=== PATIENT | male | born 1950 | race Caucasian/White ===

== ENCOUNTER → 2017-07-17 | Outpatient (CLI) | payer MEDICARE, OTHER ==
[~2017-07-17] MED LIST: ASPI325T17 PO; DIAZ5TAB PO; HYDR-3307 PO; ROSU40TA PO
== END | disposition home or self-care (01) ==
LOC: CFH 08:29
PROVIDERS: ATTEND Neurological Surgery
DX: M48.061 Spinal stenosis, lumbar region without neurogenic claudication (principal); M71.38 Other bursal cyst, other site
CPT/HCPCS: 72148

== ENCOUNTER → 2017-07-22 | Outpatient (CLI) | payer MEDICARE, OTHER ==
[2017-07-22 14:48] LABS: MICROSCOPIC NOT IND
[2017-07-22 14:50] LABS: CULTURE INDICATED? NO
[2017-07-22 14:53] LABS: BASOPHILS # (AUTO) 0.03 x10^3/uL (0-0.1); BASOPHILS % (AUTO) 1 % (0-1); EOSINOPHILS # (AUTO) 0.07 x10^3/uL (0-0.4); EOSINOPHILS % (AUTO) 1 % (1-7); LYMPHOCYTES % (AUTO) 35 % (22-44); MD NO; MEAN CORPUSCULAR HEMOGLOBIN 36.1 pg (27.5-34.5); MEAN CORPUSCULAR HGB CONC 34.7 g/dL (33.2-36.2); MEAN CORPUSCULAR VOLUME 104.1 fL (81-97); MONOCYTES # (AUTO) 0.64 x10^3/uL (0.2-0.8); MONOCYTES % (AUTO) 12 % (2-9); NEUTROPHILS # (AUTO) 2.74 x10^3/uL (1.8-6.8); NEUTROPHILS % (AUTO) 51 % (42-75); PLATELET COUNT 225 x10^3/uL (130-400); RED CELL DISTRIBUTION WIDTH 12.4 % (9.4-14.8)
[2017-07-22 14:58] LABS: ANION GAP 8 mmol/L (5-15); CALCIUM 9.8 mg/dL (8.5-10.1); CHLORIDE 104 mmol/L (98-107); CREATININE 0.66 mg/dL (0.7-1.3)
[2017-07-22 15:09] LABS: INTERNATIONAL NORMALIZED RATIO 0.96 (0.93-1.1)
== END | disposition home or self-care (01) ==
LOC: STAR 13:40
PROVIDERS: ATTEND Neurological Surgery
DX: Z01.818 Encounter for other preprocedural examination (principal); M47.897 Other spondylosis, lumbosacral region; M48.061 Spinal stenosis, lumbar region without neurogenic claudication
CPT/HCPCS: 36415; 71046; 72110; 80048; 81003; 85025; 85610; 85730; 93005

== ENCOUNTER 2017-08-05 05:58 | Day surgery (SDC) | payer MEDICARE, OTHER ==
[~2017-08-05] VITALS: Ht 180.3 cm; Wt 76.7 kg
[2017-08-05] MEDS ORDERED: CETI10TA24 PO (06:23)
[2017-08-05] MEDS ORDERED: LACTATED RINGERS 1,000 ML IV SCH (06:24)
[2017-08-05 06:25] VITALS: BP 124/80
[2017-08-05] MEDS ORDERED: BUPIVACAINE/PF 0.25% ONE (06:47)
[2017-08-05] MEDS ORDERED: VANCOMYCIN 1,000 MG ONE (06:48)
[2017-08-05] MEDS ORDERED: BACITRACIN 50,000 UNIT ONE (06:48)
[2017-08-05] MEDS ORDERED: EPINEPHRINE 1 MG/ML, 1ML ONE (06:48)
[2017-08-05] MEDS ORDERED: THROMBIN 5,000 UNIT VIAL TP ONE (06:48)
[2017-08-05] MEDS ORDERED: ONDANSETRON ODT 8 MG PO ONE (08:00)
[2017-08-05] MEDS ORDERED: OXYcodone IR 5MG TABLET PO ONE (08:00)
[2017-08-05] MEDS ORDERED: GABAPENTIN 300 MG CAPSULE PO ONE (08:00)
[2017-08-05] MEDS ORDERED: ACETAMINOPHEN 500 MG TABLET PO ONE (08:00)
[2017-08-05] MEDS ORDERED: FENTANYL PF 250 MCG/5ML ONE (08:33)
[2017-08-05] MEDS ORDERED: GLYCOPYRROLATE 0.2MG/1ML, 5ML ONE (09:06)
[2017-08-05] MEDS ORDERED: NEOSTIGMINE 1 MG/ML, 10ML ONE (09:06)
[2017-08-05] MEDS ORDERED: PROPOFOL 10 MG/ML, 20ML ONE (09:30)
[2017-08-05] MEDS ORDERED: CEFAZOLIN 1,000 MG ONE (09:31)
[2017-08-05] MEDS ORDERED: ROCURONIUM 10MG/ML,5ML ONE (09:31)
[2017-08-05] MEDS ORDERED: DEXAMETHASONE 4 MG/ML, 1ML ONE ×2 (09:31)
[2017-08-05] MEDS ORDERED: BUPIVACAINE/PF 0.25% INFIL ONE ×2 (09:48→09:57)
[2017-08-05] MEDS ORDERED: EPINEPHRINE 1 MG/ML, 1ML INFIL ONE (09:57)
[2017-08-05] MEDS ORDERED: MEPERIDINE/PF 25MG/0.5ML IVPush PRN (10:00)
[2017-08-05] MEDS ORDERED: MORPHINE SULFATE 4 MG/ML, 1ML IVPush PRN (10:00)
[2017-08-05] MEDS ORDERED: FENTANYL PF 100 MCG/2ML IV PRN (10:00)
[2017-08-05] MEDS ORDERED: PROMETHAZINE 25 MG/ML, 1ML IV PRN (10:00)
[2017-08-05] MEDS ORDERED: LABETALOL 5MG/ML, 20ML IV PRN (10:00)
[2017-08-05] MEDS ORDERED: METOPROLOL 1 MG/ML, 5ML IV PRN (10:00)
[2017-08-05] MEDS ORDERED: EPHEDRINE 50 MG/ML, 1ML IVPush PRN (10:00)
[2017-08-05] MEDS ORDERED: ALBUTEROL SULFATE 2.5 MG/3 ML NPPB PRN (10:00)
[2017-08-05] MEDS ORDERED: OXYcodone 5 MG/5 ML ORAL.SOL UDC PO PRN (10:00)
[2017-08-05] MEDS ORDERED: hydrALAzine 20 MG/ML, 1ML IV PRN (10:00)
[2017-08-05] MEDS ORDERED: HALOPERIDOL 5 MG/ML IV PRN (10:00)
[2017-08-05] MEDS ORDERED: HYDR-3245 PO (10:29)
[2017-08-05] MEDS ORDERED: TIZA2TAB PO (10:29)
== END 2017-08-05 12:25 ==
LOC: OUT 05:58
PROVIDERS: ATTEND Neurological Surgery
DX: M54.16 Radiculopathy, lumbar region (principal); M48.061 Spinal stenosis, lumbar region without neurogenic claudication; M43.16 Spondylolisthesis, lumbar region; M71.38 Other bursal cyst, other site; Z87.891 Personal history of nicotine dependence; Z72.89 Other problems related to lifestyle; Z98.890 Other specified postprocedural states
CPT/HCPCS: 63047; 72100; J0171; J0690; J1100; J2704; J2710; J3010; J3490; J7120; Q0162; J3370

== ENCOUNTER → 2017-09-01 | Outpatient (CLI) | payer MEDICARE, OTHER ==
[~2017-09-01] MED LIST changes: +CETI10TA24 PO; +HYDR-3245 PO; +TIZA2TAB PO
== END | disposition home or self-care (01) ==
LOC: RAD 09:26
DX: I71.4 Abdominal aortic aneurysm, without rupture (principal); Z87.891 Personal history of nicotine dependence
CPT/HCPCS: 93978

== ENCOUNTER → 2018-12-21 | Outpatient (CLI) | payer MEDICARE, OTHER ==
[~2018-12-21] MED LIST changes: -HYDR-3307 PO; +HYDR-36 PO; -TIZA2TAB PO; +TIZA2TAB2 PO
== END | disposition home or self-care (01) ==
LOC: CARD 09:23
PROVIDERS: ATTEND Internal Medicine
DX: I25.84 Coronary atherosclerosis due to calcified coronary lesion (principal)
CPT/HCPCS: 93017